=== PATIENT | female | born 1965 | race Caucasian/White ===

== ENCOUNTER 2021-01-03 15:45 | Outpatient (REF) | payer OTHER, SELFPAY ==
[2021-01-04 08:36] LABS: HBS Num1 58.47 mIU/mL (0-7.99); ~Hepatitis B Surface Antibody REACTIVE (Nonreactive)
== END 2021-01-03 15:46 | disposition home or self-care (01) ==
LOC: HO.MANLDS 15:45
PROVIDERS: PCP Internal Medicine; Visit Provider Physician Assistant
DX: Z01.84 Encounter for antibody response examination (principal)
CPT/HCPCS: 36415; 86706

== ENCOUNTER 2021-07-18 08:01 | Outpatient (REF) | payer OTHER, SELFPAY ==
[2021-07-18 11:00] LABS: MANUAL DIFF FLAG NO
[2021-07-18 11:12] LABS: Basophils Percent Auto 0.7 % (0-2); Eosinophils Absolute Auto 0.1 X10*3/uL (0.0-0.4); Eosinophils Percent Auto 1.6 % (0-4); Hematocrit 39.5 % (37-47); Imm Gran Abs Auto 0.02 X10*3/uL (0.00-0.03); Imm Gran Pct Auto 0.3 % (0.0-0.4); Lymphocytes Absolute Auto 1.6 X10*3/uL (1.2-4.9); Lymphocytes Percent Auto 27.7 % (20-40); Mean Corpuscular HGB Conc 32.9 g/dl (31.0-35.0); Mean Corpuscular Hemoglobin 30.3 pg (27.0-33.0); Mean Corpuscular Volume 92.1 fL (80-98); Mean Platelet Volume 10.5 fL (9.4-12.3); Monocytes Absolute Auto 0.4 X10*3/uL (0.1-1.2); Monocytes Percent Auto 7.6 % (2-11); Neutrophils Absolute Auto 3.6 X10*3/uL (2.0-8.3); Neutrophils Percent Auto 62.1 % (45-73); Platelet Count 317 X10*3/uL (160-400); Red Blood Count 4.29 X10*6/uL (4.20-5.50); Red Cell Distribution Width 12.4 % (11.0-16.0); White Blood Count 5.8 X10*3/uL (4.8-10.8)
[2021-07-18 11:35] LABS: Alanine Aminotransferase 19 U/L (0-31); Albumin Level 4.5 g/dL (3.5-5.0); Alkaline Phosphatase 80 U/L (39-117); Anion Gap 12 (12-20); Aspartate Amino Transferase 18 U/L (5-31); Bilirubin Total 0.6 mg/dL (0.0-1.0); Blood Urea Nitrogen 18 mg/dL (9-16); Calcium 9.9 mg/dL (8.4-10.2); Carbon Dioxide 28 mmol/L (22-29); Chloride 105 mmol/L (96-108); Cholesterol 213 mg/dL; Estimated Glomerular Filt Rate > 60; Glucose Fasting 96 mg/dL (60-99); HDL Cholesterol 59 mg/dL; LDL Cholesterol Calculated 146 mg/dl; Potassium 4.8 mmol/L (3.3-5.1); Sodium 140 mmol/L (135-145); Total Protein 7.1 g/dL (6.5-8.0); Triglycerides 44 mg/dL
== END 2021-07-18 08:02 | disposition home or self-care (01) ==
LOC: HO.MANLDS 08:01
PROVIDERS: PCP Physician Assistant; Visit Provider Physician Assistant
DX: Z00.00 Encounter for general adult medical examination without abnormal findings (principal)
CPT/HCPCS: 36415; 80053; 80061; 85025

== ENCOUNTER 2022-11-05 15:39 | Outpatient (REF) | payer OTHER, SELFPAY ==
[2022-11-05 18:19] LABS: MANUAL DIFF FLAG NO
[2022-11-05 18:41] LABS: Basophils Absolute Auto 0.1 X10*3/uL (0.0-0.2); Basophils Percent Auto 0.6 % (0-2); Eosinophils Absolute Auto 0.1 X10*3/uL (0.0-0.4); Eosinophils Percent Auto 1.3 % (0-4); Hematocrit 37.9 % (37.0-47.0); Hemoglobin 12.6 g/dl (12.0-16.0); Imm Gran Abs Auto 0.06 X10*3/uL (0.00-0.03); Imm Gran Pct Auto 0.8 % (0.0-0.4); Lymphocytes Absolute Auto 2.4 X10*3/uL (1.2-4.9); Lymphocytes Percent Auto 30.2 % (20-40); Mean Corpuscular HGB Conc 33.2 g/dl (31.0-35.0); Mean Corpuscular Hemoglobin 30.3 pg (27.0-33.0); Mean Corpuscular Volume 91.1 fL (80.0-98.0); Mean Platelet Volume 10.4 fL (9.4-12.3); Monocytes Absolute Auto 0.5 X10*3/uL (0.1-1.2); Monocytes Percent Auto 6.7 % (2-11); Neutrophils Absolute Auto 4.8 x10*3/uL (2.0-8.3); Neutrophils Percent Auto 60.4 % (45-73); Platelet Count 303 X10*3/uL (160-400); Red Blood Count 4.16 X10*6/uL (4.20-5.50); Red Cell Distribution Width 12.2 % (11.0-16.0); White Blood Count 7.9 X10*3/uL (4.8-10.8)
[2022-11-05 18:58] LABS: Alanine Aminotransferase 22 U/L (0-31); Albumin Level 4.3 g/dL (3.5-5.0); Alkaline Phosphatase 96 U/L (39-117); Anion Gap 14 (12-20); Aspartate Amino Transferase 21 U/L (5-31); Bilirubin Total 0.4 mg/dL (0.0-1.0); Blood Urea Nitrogen 21 mg/dL (9-16); Calcium 9.9 mg/dL (8.4-10.2); Carbon Dioxide 27 mmol/L (22-29); Chloride 106 mmol/L (96-108); Cholesterol 196 mg/dL; Estimated Glomerular Filt Rate > 60; Glucose Random 81 mg/dL (60-115); HDL Cholesterol 55 mg/dL; LDL Cholesterol Calculated 117 mg/dl; Potassium 4.1 mmol/L (3.3-5.1); Sodium 143 mmol/L (135-145); Total Protein 6.7 g/dL (6.5-8.0); Triglycerides 121 mg/dL
== END 2022-11-05 15:40 | disposition home or self-care (01) ==
LOC: HO.MANLDS 15:39
PROVIDERS: Visit Provider Physician Assistant
DX: Z00.00 Encounter for general adult medical examination without abnormal findings (principal)
CPT/HCPCS: 36415; 80053; 80061; 85025

== ENCOUNTER → 2024-05-27 11:50 | Outpatient (BNVA) | payer OTHER, SELFPAY | PROVIDERS: PCP Physician Assistant; Visit Provider Physician Assistant | DX: S20.219A Contusion of unspecified front wall of thorax, initial encounter (principal); S40.011A Contusion of right shoulder, initial encounter; X58.XXXA Exposure to other specified factors, initial encounter | CPT/HCPCS: 71101; 99204 ==

== ENCOUNTER → 2024-06-02 09:57 | Outpatient (BNVA) | payer OTHER, SELFPAY | PROVIDERS: PCP Physician Assistant; Visit Provider Physician Assistant Medical | DX: S20.219A Contusion of unspecified front wall of thorax, initial encounter (principal); S40.011A Contusion of right shoulder, initial encounter; X58.XXXA Exposure to other specified factors, initial encounter | CPT/HCPCS: 99213 ==

== ENCOUNTER → 2024-06-16 15:20 | Outpatient (BNVA) | payer OTHER, SELFPAY | PROVIDERS: PCP Physician Assistant; Visit Provider Physician Assistant Medical | DX: S20.219A Contusion of unspecified front wall of thorax, initial encounter (principal); S40.011A Contusion of right shoulder, initial encounter; X58.XXXA Exposure to other specified factors, initial encounter | CPT/HCPCS: 99213 ==

== ENCOUNTER → 2024-07-16 15:22 | Outpatient (BNVA) | payer OTHER, SELFPAY | PROVIDERS: PCP Physician Assistant; Visit Provider Physician Assistant Medical | DX: S40.011D Contusion of right shoulder, subsequent encounter (principal); S20.219D Contusion of unspecified front wall of thorax, subsequent encounter; X58.XXXD Exposure to other specified factors, subsequent encounter | CPT/HCPCS: 99213 ==

== ENCOUNTER 2025-01-01 08:04 | Outpatient (REF) | payer OTHER, SELFPAY ==
--- OUTSIDE RECORDS SUMMARY | 2025-01-01 08:12 | XMS_ITS | Data Portability ---
Author Organization [facility] Home Service Address [address] [place] [address] Assessment No assessment recorded. Plan of Treatment Reminders Order Date Submit Date Provider Last Modified By Organization Details Last Modified Time Details Appointments ANNUAL EXAM 2025 03:30P ELSA STAHL Not available Not available Not available Lab CMP, serum or plasma 2024 025 [facility], [address] [place] [address], [id number], 12/07/2024 16:01:30 CBC w/ auto diff 2024 025 [facility], [address] [place] [address], [id number], 12/07/2024 16:01:30 lipid panel, blood 2024 025 [facility], [address] [place] [address], [id number], 12/07/2024 16:01:30 hemoglobi n A1c, QN, blood 2024 025 [facility], [address] [place] [address], [id number], 12/07/2024 16:01:30 CMP, serum or plasma 2023 024 [facility], [place], [address], 01/23/2024 17:35:25 CBC w/ auto diff 2023 024 [facility], [place], [address], 12/02/2023 16:06:33 lipid panel, blood 2023 024 [facility], [place], [address], 12/02/2023 16:06:34 CMP, serum or plasma 2022 023 [facility], [address] [place] [address], [id number], 11/06/2022 11:36:03 CBC w/ auto diff 2022 023 [facility], [address] [place] [address], [id number], 11/06/2022 11:36:04 lipid panel, blood 2022 023 [facility], [address] [place] [address], [id number], 11/06/2022 11:36:03 CMP, serum or plasma 2020 021 [facility], [address] [place] [address], [id number], 07/19/2021 11:46:57 CBC w/ auto diff 2020 021 [facility], [address] [place] [address], [id number], 07/17/2021 16:45:14 lipid panel, blood 2020 021 [facility], [address] [place] [address], [id number], 07/17/2021 16:45:15 CMP, serum or plasma 2018 019 demetri Not available 10/01/2018 14:04:26 CBC 2018 019 [email or web address] Not available 10/01/2018 14:04:27 lipid panel, blood 2018 019 [email or web address] Not available 10/01/2018 14:04:27 Referral gastroent erologist referral 2018 019 [facility], [address] [place], [address], 10/02/2018 08:31:17 Procedures None recorded. Surgeries None recorded. Imaging US, breast 2018 019 [email or web address] Not available 10/15/2018 08:20:22 MAMMO, diagnosti c, bilateral 2018 019 [email or web address] Not available 10/15/2018 08:20:22 Medication Orders lorazepam 0.5 mg tablet 2023 024 [facility]/Pharmacy #2024, [address] [place], [address], 12/02/2023 15:54:55 lorazepam 0.5 mg tablet 2022 023 [facility]/Pharmacy #2024, [address] [place], [address], 11/02/2022 15:55:13 lorazepam 0.5 mg tablet 2018 019 demetri Not available 10/01/2018 14:04:27 Patient TargetsNo targets recorded. Patient InstructionsNo instructions recorded. Reason for Referral Field Contact Person Referral for Screening procedure screening colonoscopy Referring Physician: Nehal Rush, Internal Medicine, Encounter Date: 10/01/2018 Results Created Date Observation Date Name Description Value Unit Range Abnormal Flag Note LastModifiedBy Organization Detail LastModifiedTime 05/27/20 24 05/27/2024 XR, ribs, bilat eral No observ ation record ed. [facility] (Medical Records) [address] [place], [address], 05/28/2024 17:34:21 Result Notes None recorded. Problems Name Problem SNOMED Code Status Onset Date Resolution Date Notes Provider Name and Address Organization Details Recorded Time Low back pain 766834034 [facility] Urinary tract infectious disease 03514575 Active 2018 Halley ramos [facility] 9 08:35:20 Anxiety 96584631 Active 2018 Nehal Rush NP, [address] [place] [address], [phone], [facility] 9 14:00:49 Problem Notes None recorded. Procedures Surgical History Date Name Laterality Status Provider Name and Address Organization Details Recorded Time ligation of bilateral fallopian tubes completed Nehal Rush NP, [address] [place] [address], [id number], [facility] 10/01/2018 13:38:47 varicose vein operation completed Nehal Rush NP, [address] [place] [address], [phone], [facility] 10/01/2018 13:39:00 Imaging Results Imaging Date Name Status LastModified by Organiz ation Details LastModified Time 05/27/2024 XR, ribs, bilateral completed [email or web address] (Medical Records) [address] [place], [address], 05/28/2024 17:34:21 Procedure Notes None recorded. Medical Equipment None Reported. Allergies Allergen ID Allergen Name Allergen Category Reaction Reaction Severity Criticality Documentation Date Start Date Code Code System Note Provider Name and Address Organization Details Recorded Time 2676 morphine medicatio n Not available Not available Not available 10/01/2018 7052 RxNorm Halley ramos [facility] 9 08:35:06 Medications Name Sig Start Date Stop Date Status Note LastModified by Organization Details LastModified Time azithromyci n 250 mg tablet TAKE 2 TABLETS BY MOUTH TODAY, THEN TAKE 1 TABLET DAILY FOR 4 DAYS DIRECTED 12/01 completed Not Available Not Available Not Available lorazepam 0.5 mg tablet TAKE 1 TABLET BY MOUTH EVERY DAY NEEDED active Not Available Not Available No t Available methylpredn isolone 4 mg tablets in a dose pack TAKE 6 TABLETS ON DAY 1 DIRECTED ON PACKAGE AND DECREASE BY 1 TAB EACH DAY FOR A TOTAL OF 6 DAYS 12/01 completed Not Available Not Available Not Available Multivitami n 50 Plus daily; OTC active Not Available Not Available No t Available B12 active Not Available Not Availa ble Not Available [employer] daily; OTC active Not Available Not Available No t Available Vitals Date Recorded Body weight Heart rate Oxygen saturation Oxygen saturation in Arterial blood by Pulse oximetry Systolic blood pressure Diastolic blood pressure Provider Name and Address Organization Details Last Updated DateTime 1 63526.8 4 g 83 /min 98 % 98 % 108 mm[Hg] 70 mm[Hg] ELSA SAGE [address] [place], [address] 1 15:34:12 Date Recorded Body height Body mass index (BMI) Body weight Oxygen saturation Oxygen saturation in Arterial blood by Pulse oximetry Heart rate Systolic blood pressure Diastolic blood pressure Provider Name and Address Organization Details Last Updated DateTime 3 158.75 cm 21.4 kg/m2 53760.1 3 g 98 % 98 % 82 /min 110 mm[Hg] 62 mm[Hg] Oriana Gunter [facility] 3 15:45:16 Date Recorded Body height Body mass index (BMI) Body weight Heart rate Oxygen saturation Oxygen saturation in Arterial blood by Pulse oximetry Systolic blood pressure Diastolic blood pressure Provider Name and Address Organization Details Last Updated DateTime 4 157.48 cm 23.2 kg/m2 78135.2 3 g 90 /min 98 % 98 % 118 mm[Hg] 70 mm[Hg] Maine Lynn [facility] 4 15:45:48 Date Recorded Body weight Body mass index (BMI) Body height Heart rate Oxygen saturation Oxygen saturation in Arterial blood by Pulse oximetry Systolic blood pressure Diastolic blood pressure Provider Name and Address Organization Details Last Updated DateTime 5 13156.8 2 g 23.4 kg/m2 157.48 cm 82 /min 98 % 98 % 136 mm[Hg] 82 mm[Hg] Young Barbosa [facility] 5 15:37:43 Date Recorded Body height Body mass index (BMI) Body weight Heart rate Oxygen saturation Oxygen saturation in Arterial blood by Pulse oximetry Respiratory rate Systolic blood pressure Diastolic blood pressure Provider Name and Address Organization Details Last Updated DateTime 9 158.75 cm 21.6 kg/m2 69517.0 8 g 76 /min 99 % 99 % 16 /min 98 mm[Hg] 60 mm[Hg] Nehal Rush NP, S [address] [place], [address], [facility] 9 13:33:23 Social History Question Answer Notes LastModified by Organizat ion Details LastModified Time Tobacco Smoking Status Never Smoker Nehal Rush NP, [address] [place], [address], [facility] 10/01/2018 13:38:27 What Was The Date Of Your Most Recent Tobacco Screening? 12/07/2024 [email or web address] Information not available 12/07/2024 Do You Or Have You Ever Used Any Other Forms Of Tobacco Or Nicotine? No [email or web address] Information not available 12/02/2023 Sex: Unknown Functional Status None recorded. Mental Status None recorded. Family History Relationship Description Onset Age of this Age Resolved Age Notes LastModified by Organization Details LastModified Time Father Myocardial infarction 70 [email or web address] Not available 10/01 13:36:22 Mother Atrial fibrillation [email or web address] Not available 15:29:49 Sister Malignant tumor of breast 56 [email or web address] Not available 2020 15:29:49 Medical History Condition Response Coronary Artery Disease N Gout N Kidney Stones N Blood Diseases N Hyperthyroidism N Blood Transfusion N Breast Cancer N COPD N Lung Disease N Hypothyroidism N Defects or Inherited Disease N Difficulty Swallowing N Anesthesia Complications N Anxiety Disorder Y Muscle, Joint, or Bone Problems Y Obesity N Vision or Eye Problems Y Arthritis N Mental Disorder N Cancer N Varicosities Y Stroke N Bladder or Kidney Problems N High Cholesterol N Liver Disease N Headaches N Fibromyalgia N Kidney Disease N Allergies/Hayfever N Heart Problems N Hospitalizations N GI Problems N Eating Disorder N Skin Problems N Anemia N Constipation N Mental Illness N Diabetes N Seizures/Epilepsy N Tuberculosis N Congestive Heart Failure (CHF) N Eczema N Abuse/Domestic Violence N Diverticulitis N Asthma N Reflux/GERD Y Hepatitis N Heart Disease N Pulmonary Embolism N Chronic Ear Infections N Hypertension N Chicken Pox Y Autism Spectrum Disorder (ASD) N Gynecological History Statement/Question Response Menses Monthly N If Post Menopausal, Age at Menopause 46 HPV Vaccine N Age at Menarche 15 Age at First Child 25 Sexually Active? N Obstetrics History GPAL:G 3 P 3 0 0 2 Type Value Full Term 3 Living 2 Total 3 Immunizations Vaccine Type Date Status Note Provider Nam e and Address Organization Details Recorded Time COVID-19, mRNA, LNP-S, PF, 100 mcg/0.5mL dose or 50 mcg/0.25mL dose 01/13/2021 completed Oriana ramos [facility] 06/09/2021 08:40:19 COVID-19, mRNA, LNP-S, PF, 100 mcg/0.5mL dose or 50 mcg/0.25mL dose 02/11/2021 completed Oriana ramos [facility] 06/09/2021 08:40:25 Past Encounters Encounter ID Performer Location Encounter Start Date Encounter Closed Date Diagnosis/Indication Diagnosis SNOMED-CT Code Diagnosis ICD10 Code Diagnosis Note [id number] Nehal Rush NP, S [facility] [address] [facility], [place] [address] 10/01/2018 13:24:31 10/01/2018 20:18:46 Adult health examination 405400771 Z00.00 Mass of right breast 088 0868903 7382441 N63.12 Anxiety 91184574 F41.9 Screening procedure 2012 5006 Z13.9 [id number] ELSA SAGE [facility] [address] [facility], [place] [address] 07/17/2021 15:26:16 07/17/2021 16:30:20 Adult health examination 619890366 Z00.00 needs BWBP is excellent today [id number] ELSA SAGE [facility] [address] [facility], [place] [address] 11/02/2022 15:35:45 11/02/2022 16:40:26 Active or passive immunization 916051420 Z23 up-to-date Adult heal th examination 085509558 Z00.00 needs BWBP is excellent today Anxiety 59315679 F41.1 restart ativantold to call when she needs itshe wanted to wait [id number] ELSA SAGE [facility] [address] [facility] [address] [address] 12/02/2023 15:24:33 12/02/2023 16:11:34 Adult health examination 959080170 Z00.00 needs BWBP is excellent today Anxiety 94752190 F41.1 restart ativantold to call when she needs itshe wanted to wait [id number] ELSA SAGE [facility] [address] [facility] [address],[place] [address] 12/07/2024 15:23:29 12/07/2024 16:35:01 Active or passive immunization 877559901 Z23 up-to-date Adult heal th examination 578009537 Z00.00 needs BWBP is excellent today Health Concerns Section Related Observation LastModified by Organization Detai ls LastModified Time None Recorded Concern Status LastModified by Organization Details LastModified Time None Recorded Advance Directives Directive None Recorded Payers Encounter Date Sequence Insurance Name Policy Number Policy Peter Covered Member ID Peter Member ID Guarantor Name 10/01/2018 1 [facility] [employer] [facility] (O) [id number] Mary Jane Bret [employer] [id number] Mary Jane Clifford [employer] 11/02/2022 1 [facility] [id number] Mary Janeadrrian Tracyssier [employer] [id number] Mary Jane Darrin [employer] 12/02/2023 1 [facility] [id number] Mary Jane Darrin [employer] [id number] Mary Jane Clifford [employer] 12/07/2024 1 [facility] [id number] Mary Jane Melaraier [employer] [id number] Mary Janedarrian Tracyssier [employer] Notes Date Note Type Note Provider Name a nd Address Organization Details Recorded Time 9 text/html Annual WellnessReported bypatient.Diet and Nutrition:diet is high in salt; discussed diet improvement Fracture Risk:no history of fractures; no recent explained fracture; no sudden unexplained fractures; no previous musculoskeletal injuries Physical Activity:exercises on a regular basis; good physical condition; walk Additional Lifestyle Factors:no tobacco use; drinks alcohol (mild-moderate) Depression Risk:never feels sad, empty, or tearful; no loss of interest in activities; no significant changes in weight; no agitation; no loss of energy; no feelings of worthlessness or guilt; no thoughts of suicide; no history of depression; no history of mood disorders;sleep disturbances or insomnia Hearing:no loss of hearing Vision:no vision problems; glasses help, up to date eye exams Some right sciatica, seeing chiropractor Nehal Rush NP, [address] [place], [address], [facility] 10/01/2018 14:35:31 1 text/html Annual WellnessReported bypatient.Diet and Nutrition:healthy diet; discussed vitamin and supplement use; discussed portion control; discussed maintaining calcium balance; discussed diet improvement; stable Fracture Risk:no history of fractures; no recent explained fracture; no sudden unexplained fractures; no previous musculoskeletal injuries; stable Physical Activity:exercises on a regular basis; recent increase in physical activity; good physical condition; discussed weightbearing activities; discussed exercise habits; watches her grand-son Additional Lifestyle Factors:no tobacco use; drinks alcohol (mild-moderate) Depression Risk:never feels sad, empty, or tearful; no loss of interest in activities; no significant changes in weight; no sleep disturbances or insomnia; no agitation; no loss of energy; no feelings of worthlessness or guilt; no thoughts of suicide; no history of depression; no history of mood disorders Hearing:no loss of hearing Vision:no vision problems BP is excellent todayweight is stable the patient is back to work since December, doing well ELSA SAGE [address] [place], [address], [facility] 07/17/2021 16:00:36 3 text/html Annual WellnessReported bypatient.Diet and Nutrition:diet is high in salt;diet is high in fat, low in fiber; discussed vitamin and supplement use; discussed portion control; discussed maintaining calcium balance; discussed diet improvement; eats very small portions not always the healthies Fracture Risk:no history of fractures; no recent explained fracture; no sudden unexplained fractures; no previous musculoskeletal injuries Physical Activity:exercises on a regular basis; recent increase in physical activity; good physical condition; discussed weightbearing activities; discussed exercise habits; very very active at work very physically active good Additional Lifestyle Factors:no tobacco use; drinks alcohol (mild-moderate) Depression Risk:never feels sad, empty, or tearful; no loss of interest in activities; no significant changes in weight; no sleep disturbances or insomnia; no agitation; no loss of energy; no feelings of worthlessness or guilt; no thoughts of suicide; no history of depression; no history of mood disorders Hearing:no loss of hearing Vision:no vision problems; wears glasses agreed to another fill of ativantakes it very sparingly talked about diet, tends to eat very small portions and not always the healthiest stressed because of work and personal issues with her family ELSA SAGE [address] [place], [address], [facility] 11/02/2022 16:09:03 4 text/html Annual WellnessReported bypatient.Diet and Nutrition:healthy diet; discussed vitamin and supplement use; discussed portion control; discussed maintaining calcium balance; discussed diet improvement Fracture Risk:no history of fractures; no recent explained fracture; no sudden unexplained fractures; no previous musculoskeletal injuries Physical Activity:exercises on a regular basis; recent increase in physical activity; good physical condition Depression Risk:never feels sad, empty, or tearful; no loss of interest in activities; no significant changes in weight; no sleep disturbances or insomnia; no agitation; no loss of energy; no feelings of worthlessness or guilt; no thoughts of suicide; no history of depression; no history of mood disorders Hearing:no loss of hearing Vision:no vision problems sees chiropractor regularly for her low back pain, it helps her pain recovered from her URI, medications helped a lot ELSA SAGE [address] [place], [address], [facility] 12/02/2023 16:06:05 5 text/html Annual WellnessReported bypatient.Diet and Nutrition:healthy diet; discussed vitamin and supplement use; discussed portion control; discussed maintaining calcium balance; discussed diet improvement Fracture Risk:no history of fractures; no recent explained fracture; no sudden unexplained fractures; no previous musculoskeletal injuries Physical Activity:exercises on a regular basis; recent increase in physical activity; good physical condition Additional Lifestyle Factors:no tobacco use; drinks alcohol (mild-moderate) Depression Risk:never feels sad, empty, or tearful; no loss of interest in activities; no significant changes in weight; no sleep disturbances or insomnia; no agitation; no loss of energy; no feelings of worthlessness or guilt; no thoughts of suicide; no history of depression; no history of mood disorders Hearing:no loss of hearing Vision:no vision problems anxiety: does have some personal life stuff with her and her KATHRYN dying recentlyBP is good sees chiropractor every other week ELSA SAGE [address] [place] [address], [address], [facility] 12/07/2024 16:04:47 OBGyn Episode No OBEpisode recorded.
[2025-01-01 13:16] LABS: MANUAL DIFF FLAG NO
[2025-01-01 13:30] LABS: Basophils Absolute Auto 0.1 X10*3/uL (0.0-0.2); Basophils Percent Auto 1.2 % (0-2); Eosinophils Absolute Auto 0.1 X10*3/uL (0.0-0.4); Eosinophils Percent Auto 2.3 % (0-4); Hematocrit 40.4 % (37.0-47.0); Hemoglobin 13.2 g/dl (12.0-16.0); Imm Gran Abs Auto 0.02 X10*3/uL (0.00-0.03); Imm Gran Pct Auto 0.4 % (0.0-0.4); Lymphocytes Absolute Auto 1.7 X10*3/uL (1.2-4.9); Lymphocytes Percent Auto 32.2 % (20-40); Mean Corpuscular HGB Conc 32.7 g/dl (31.0-35.0); Mean Corpuscular Volume 91.8 fL (80.0-98.0); Mean Platelet Volume 10.4 fL (9.4-12.3); Monocytes Absolute Auto 0.5 X10*3/uL (0.1-1.2); Neutrophils Absolute Auto 2.8 x10*3/uL (2.0-8.3); Neutrophils Percent Auto 53.9 % (45-73); Platelet Count 340 X10*3/uL (160-400); Red Cell Distribution Width 12.3 % (11.0-16.0); White Blood Count 5.2 X10*3/uL (4.8-10.8)
[2025-01-01 13:42] LABS: Alanine Aminotransferase 31 U/L (0-31); Albumin Level 4.2 g/dL (3.5-5.0); Alkaline Phosphatase 100 U/L (39-117); Anion Gap 10 (12-20); Aspartate Amino Transferase 29 U/L (5-31); Bilirubin Total 0.4 mg/dL (0.0-1.0); Blood Urea Nitrogen 15 mg/dL (9-16); Calcium 9.5 mg/dL (8.4-10.2); Carbon Dioxide 27 mmol/L (22-29); Chloride 109 mmol/L (96-108); Cholesterol 200 mg/dL (<200); Estimated Glomerular Filt Rate > 60; Glucose Random 89 mg/dL (60-115); HDL Cholesterol 55 mg/dL (>40); LDL Cholesterol Calculated 133 mg/dL (<100); Potassium 4.1 mmol/L (3.3-5.1); Sodium 142 mmol/L (135-145); Triglycerides 60 mg/dL (<150)
[2025-01-01 13:46] LABS: Estimated Average Glucose 103 mg/dL; Hemoglobin A1C 113.8598 umol/L; Hemoglobin A1c % 5.2 % (<6.0); Total Hemoglobin (HGBA1C) 3456.5443 umol/L
== END 2025-01-01 08:05 | disposition home or self-care (01) ==
LOC: HO.MANLDS 08:04
PROVIDERS: Visit Provider Physician Assistant
DX: Z00.00 Encounter for general adult medical examination without abnormal findings (principal); Z13.6 Encounter for screening for cardiovascular disorders; Z13.1 Encounter for screening for diabetes mellitus
CPT/HCPCS: 36415; 80053; 80061; 83036; 85025